=== PATIENT | female | born 1995 | race Caucasian/White ===

== ENCOUNTER → 2019-10-02 | Outpatient (REF) | payer BC | LOC: M SFHCLERA 10-01 19:12 | PROVIDERS: ATTEND Physician Assistant | DX: K92.1 Melena (principal) ==

== ENCOUNTER → 2022-04-25 | Outpatient (REF) | LOC: M LAB REF 16:59 | PROVIDERS: ATTEND Obstetrics & Gynecology | DX: Z36.9 Encounter for antenatal screening, unspecified (principal) ==